=== PATIENT | female | born 1985 | race Hispanic/Latino ===

== ENCOUNTER 2020-01-06 06:19 | Emergency (ER) | payer OTHER | END 2020-01-06 06:41 | LOC: EDH 06:19 | DX: Z02.83 Encounter for blood-alcohol and blood-drug test (principal); R79.89 Other specified abnormal findings of blood chemistry; Z88.0 Allergy status to penicillin | CPT/HCPCS: 36415 ==

== ENCOUNTER 2024-11-14 04:33 | Emergency (ER) | payer MEDICARE ==
[~2024-11-14] VITALS: Ht 160 cm; Wt 68.9 kg
[2024-11-14 04:36] VITALS: RESP 20; TEMP 97.4
--- NOTE | 2024-11-14 05:10 | ERN ---
General Chief Complaint: Laceration/Avulsion Stated Complaint: C/O LACERATION TO LEFT LITTLE FINGER Time Seen by MD: 04:40 History of Present Illness Initial Comments Otherwise healthy 37-year-old female who presents for a finger laceration. Patient reports she cut herself with a kitchen knife on the left pinky finger palmar side near the MIP. She is unable to flex the finger, but she is able to extend and she was sensation and good cap refill. No other injuries. No foreign bodies. Allergies: Coded Allergies: Penicillins (Unverified Allergy, Unknown, 01/06/20) Past Medical History Past Medical History: Anxiety, Bipolar, Depression Past Surgical History: Female( History) LMP: Sep 29, 2024 ROS Dictation CONSTITUTIONAL: No chills, no fever, no weakness, no diaphoresis, no malaise. HEAD/FACE: No signs of trauma. EENT: No eye pain, no blurred vision, no tearing, no double vision, no ear pain, no ear discharge, no nose pain, no nasal congestion, no throat pain, no throat swelling, no mouth pain. RESPIRATORY: No cough, no orthopnea, no SOB, no stridor, no wheezing. CARDIOVASCULAR: No chest pain, no edema, no palpitations, no syncope. GASTROINTESTINAL/ABDOMINAL: No abdominal pain, no constipation, no diarrhea, no nausea, no vomiting. GENITOURINARY: No abnormal discharge, no dysuria, no frequent urination, no hematuria. No complaints of pain in the genitals. MUSCULOSKELETAL: Left pinky injury pain INTEGUMENTARY: No change in color, no change in hair/nails, no dryness, no lesion, no lumps, no rash. NEUROLOGICAL/PSYCH: No anxiety, not depressed, no emotional problem, no headache, no numbness, no pre-existing deficit, no history of seizures, no tremors, no weakness. HEMATOLOGIC/LYMPHATIC: Not anemic, no history of blood clots, no apparent bleeding, no bruising, glands not swollen. All Systems Negative, Except as Noted. Physical Exam Physical Exam Dictation VITAL SIGNS: Reviewed. GENERAL APPEARANCE: Alert, oriented x3, no acute distress HEAD AND FACE: Non-traumatic. EYES: PERRL, pink conjunctivas, eyelid no trauma, anterior chamber clear. EARS: Pinnas intact and no signs of trauma or erythema. Ear canals clear and no discharge. TMs no erythema. NOSE: No discharge, no bleeding. OROPHARYNX: Mouth normal, teeth no caries, tongue pink. Pharynx clear, no erythema. Tonsils no exudates, no abscesses noted. Mucous membrane moist. NECK: Supple, non-tender, no thyromegaly, no masses, no JVD, no bruits. BREAST: Deferred. CHEST: No tenderness, no crepitus, no paradoxical movement, no retractions. LUNGS: Clear, well-ventilated, symmetric, no rales, no wheezing, no rhonchi, no stridor, good breath sounds bilaterally. HEART: Regular rate, regular rhythm, no murmur, no gallops. VASCULAR: No peripheral edema. ABDOMEN: Soft, positive bowel sounds, nondistended, no guarding, nontender, no rebound, no masses no hepatomegaly, no splenomegaly, no Forbes's sign, no hernias. RECTAL: Deferred. GENITAL: Deferred. NEUROLOGICAL: Normal speech, gross motor function intact, gross sensory function intact. MUSCULOSKELETAL: Neck nontender, full range of motion, back nontender, full range of motion. Left finger injury as described an MDM. EXTREMITIES: Nontender, full range of motion. SKIN: Color pink, dry, no turgor, no rash, no lacerations, no abrasions, no contusions. LYMPHATICS: Deferred. MDM CC: Left pinky injury/laceration Historian: Patient Comorbidities: None Limitations by social determinants of health: None Differential diagnosis: Laceration, tendinous injury, neurovascular injury. No signs of fracture Clinical exam: She has a 1 cm laceration palmar side near the MIP. It is very superficial. Patient was unable to flex at the D IP and MIP, able to flex and extend the PIP. Good cap refill, good sensation. No signs of vascular injury. Possibly a tendinous injury. Unable to appreciate any tendon exposure. The wound was anesthetized with lidocaine, clean with soap and water. Repaired with four sutures. See procedure note. No complications. Placed in a splint. We will send Orthopedics as an outpatient in the morning. Patient agrees to the plan. ED Course Vital Signs Date Time Temp Pulse Resp B/P (MAP) Pulse Ox O2 Delivery O2 Flow Rate FiO2 11/14/24 04:36 97.3 20 Room Air Laceration/Wound Repair Laceration/Wound Repair : Wound Location: upper extremity Wound Length (cm): 1 Wound Explored: clean Betadine Prep?: Yes Anesthesia: 1% Lidocaine Volume Anesthetic (ccs): 2 Wound Debrided: moderate Wound Repaired With: sutures Suture Size/Type: 5:0 Number of Sutures: 4 Layer Closure?: No Sterile Dressing Applied?: Yes DX & DISP Disposition: Discharge Departure Impression: Primary Impression: Laceration of left little finger Additional Impression: Injury of tendon of finger Condition: Stable Additional Instructions: You have a pinky finger laceration with possible tendon injury. The laceration was cleaned and repaired in the ED. Keep the splint on that you've been provided until you are evaluated by an orthopedist. You can briefly take off the splint to clean the injury. You will need to follow up with an orthopedist. I've given you a referal to Dr Hamlin's office. As we discussed, you can drop in to their office M-F 8a-12p. The office address is: [address] [place] [address]. Phone number . You can take over the counter tylenol or ibuprofen as needed for pain. The sutures will need to be removed in 10 days. Monitor for infection or other concerning symptoms. Referrals: OUMUO HAMLIN MD, RYAN E DO Nov 14, 2024 05:10
[2024-11-16] MEDS ORDERED: TRAM50TA4 PO (09:27)
[2024-11-16] MEDS ORDERED: ALPR2TAB7 PO (09:27)
[2024-11-16] MEDS ORDERED: IBUP-2077 PO (09:27)
[2024-11-16] MEDS ORDERED: SERT-440 PO (11:40)
== END 2024-11-14 05:35 | disposition home or self-care (01) ==
LOC: EDH 04:33
DX: S61.217A Laceration without foreign body of left little finger without damage to nail, initial encounter (principal); F31.9 Bipolar disorder, unspecified; Z88.0 Allergy status to penicillin; W26.0XXA Contact with knife, initial encounter; Y93.89 Activity, other specified; Y92.096 Garden or yard of other non-institutional residence as the place of occurrence of the external cause; Y99.8 Other external cause status
CPT/HCPCS: 12001; 99282